=== PATIENT | male | born 1995 | race American Indian/Alaskan Native ===

== ENCOUNTER 2017-12-08 00:02 | Emergency (ER) | payer MEDICAID ==
[2017-12-08 00:03] VITALS: BMI 23.6
[2017-12-08 00:36] VITALS: BP 117/74; PULSE 85; RESP 16; TEMP 98.4; O2SAT 96
--- NOTE | 2017-12-08 02:27 | ED PDOC ---
HPI: Chest Pain Time Seen by Provider: 12/08/17 00:56 Chief Complaint (Nursing): Chest Pain History Per: Patient History/Exam Limitations: no limitations Additional Complaint(s): 22 yo M c/o intermittent chest pain today, reports no chest pain since he arrived to the ER. Reports no fever, cough, trauma, injury, SOB, dyspnea, N/V/D , abdominal pain, back pain, leg pain/swelling, recent travel. Has no other complaints. Past Medical History Vital Signs: Last Vital Signs Temp 98.4 F 12/08/17 00:30 Pulse 85 12/08/17 00:30 Resp 16 12/08/17 00:30 BP 117/74 12/08/17 00:30 Pulse Ox 96 12/08/17 04:13 - Medical History PMH: No Chronic Diseases - Family History Family History: States: No Known Family Hx - Home Medications Home Medications: Ambulatory Orders Medication Instructions Recorded Sulfamethoxazole/Trimethoprim 1 tab PO BID #14 tab 06/16/17 [Bactrim DS 800 mg-160 mg] - Allergies Allergies/Adverse Reactions: Allergies Allergy/AdvReac Type Severity Reaction Status Date / Time No Known Allergies Allergy Verified 06/16/17 13:08 Review of Systems Constitutional: Negative for: Fever, Weakness, Malaise Cardiovascular: Positive for: Chest Pain. Negative for: Palpitations, Edema Respiratory: Negative for: Cough, Shortness of Breath, Wheezing Gastrointestinal: Negative for: Vomiting, Abdominal Pain Musculoskeletal: Negative for: Neck Pain, Back Pain Skin: Negative for: Rash Physical Exam - Reviewed Vital Signs Reviewed: Yes - Physical Exam Appears: Positive for: Well, Non-toxic, No Acute Distress Head Exam: Positive for: ATRAUMATIC, NORMAL INSPECTION, NORMOCEPHALIC Skin: Positive for: Normal Color, Warm, DRY Eye Exam: Positive for: EOMI, Normal appearance, PERRL ENT: Positive for: Normal ENT Inspection Neck: Positive for: Normal, Painless ROM Cardiovascular/Chest: Positive for: Regular Rate, Rhythm. Negative for: Murmur Respiratory: Positive for: Normal Breath Sounds. Negative for: Rales, Rhonchi, Wheezing Gastrointestinal/Abdominal: Positive for: Normal Exam, Soft. Negative for: Tenderness Back: Positive for: Normal Inspection Extremity: Positive for: Normal ROM. 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 Negative for: Motor/Sensory Deficits, Facial Droop - ECG O2 Sat by Pulse Oximetry: 96 Medical Decision Making Medical Decision Making: EKG : NSR at 85 bpm, no acute ST changes, as read by PA. On re-evaluation, patient sleeping but arouses easily, reports no chest pain, denies any SOB. On exam, patient remains AAOx3, in no acute distress. Based on history, exam and diagnostic results, plan will be for outpatient follow up. Patient instructed to follow-up with pmd or referral provided in 1-2 days without fail. Return to the emergency room at any time for any new or worsening symptoms. Patient states he fully agrees with and understands discharge instructions. States that he agrees with the plan and disposition. Verbalized and repeated discharge instructions and plan. I have given the patient opportunity to ask any additional questions. Disposition - Clinical Impression Clinical Impression: Chest pain - Patient ED Disposition Is Patient to be Admitted: No Counseled Patient/Family Regarding: Studies Performed, Diagnosis, Need For Followup - Disposition Referrals: [facility] [Outside] Jimbo Mills MD [Staff Provider] - Disposition: Routine/Home Disposition Time: 02:15 Condition: STABLE Additional Instructions: Thank you for letting us take care of you today. You were treated for chest pain. The emergency medical care you received today was directed at your acute symptoms. Return to the Emergency Department if your symptoms worsen, do not improve, or if you have any other problems. Please contact your doctor in 2 days for re-evaluation and follow up / or call one of the physicians/clinics you have been referred to that are listed on the Patient Visit Information form that is included in your discharge packet. Bring any paperwork you were given at discharge with you along with any medications you are taking to your follow up visit. Our treatment cannot replace ongoing medical care by a primary care provider (PCP) outside of the emergency department. Thank you for allowing the [facility] team to be part of your care today. Instructions: Chest Pain Forms: [employer] (Ugandan) - PA / SCRIPT EDITOR / Resident Statement /DO has reviewed & agrees with the documentation as recorded.
== END 2017-12-08 03:00 | disposition home or self-care (01) ==
LOC: H.ER 00:02
DX: R07.89 Other chest pain (principal)